=== PATIENT | male | born 1990 | race Caucasian/White ===

== ENCOUNTER 2017-10-30 22:15 | Emergency (ER) | payer MEDICAID, OTHER ==
[~2017-10-30] VITALS: Ht 180.3 cm; Wt 70.3 kg
[2017-10-30] MEDS ORDERED: CONTRAST GIVEN MC PRN (22:45)
[2017-10-30] MEDS ORDERED: HYOSCYAMINE 0.125 MG TAB.RAPDIS PO ONE (23:00)
[2017-10-30] MEDS ORDERED: IV NORMAL SALINE 1,000ML 1,000 ML IV ONE (23:00)
[2017-10-30] MEDS ORDERED: ONDANSETRON PF 4 MG/2 ML VIAL. IV ONE (23:00)
[2017-10-30] MEDS ORDERED: IOHEXOL 300 MG/ML 75 ML VIAL. IV ONE (23:00)
[2017-10-30] MEDS ORDERED: IOHEXOL 240 MG/ML 50ML VIAL. PO ONE (23:00)
[2017-10-30] MEDS ORDERED: FAMOTIDINE 20 MG/2 ML VIAL IVP ONE (23:00)
[2017-10-30 23:13] LABS: BASO % 0 % (0-3); EOS # 0.1 x10^3/uL (0.0-0.7); EOS % 1 % (0-3); HEMATOCRIT 45.8 % (39.0-53.0); HEMOGLOBIN 15.9 g/dL (13.0-17.5); LYMPH # 2.2 x10^3/uL (1.0-4.8); LYMPH % 24 % (24-48); MEAN CORPUSCULAR HEMOGLOBIN 32 pg (25-35); MEAN CORPUSCULAR HGB CONC 35 g/dL (31-37); MEAN CORPUSCULAR VOLUME 92 fL (79-100); MONO % 11 % (0-9); NEUT # 5.9 x10^3uL (1.8-7.7); NEUT % 63 % (31-73); PLATELET COUNT 301 x10^3/uL (140-400); RED BLOOD COUNT 4.98 x10^6/uL (4.30-5.70); RED CELL DISTRIBUTION WIDTH 13.9 % (11.5-14.5); WHITE BLOOD COUNT 9.3 x10^3/uL (4.0-11.0)
[2017-10-30 23:28] LABS: ALBUMIN/GLOBULIN RATIO 1.1 (1.0-1.7); CALCIUM 9.3 mg/dL (8.5-10.1); GFR 90.3; MAGNESIUM 2.1 mg/dL (1.8-2.4); POTASSIUM 3.2 mmol/L (3.5-5.1); TOTAL BILIRUBIN 0.4 mg/dL (0.2-1.0); TOTAL PROTEIN 7.5 g/dL (6.4-8.2)
[2017-10-31] MEDS ORDERED: HYDR25SU18 RC (00:06)
[2017-10-31] MEDS ORDERED: HYOS0.1265 SL (00:06)
--- NOTE | 2017-10-31 00:06 | PHYS DOC ---
Past History Additional Past Medical Histor: Lactose intolerance Past Surgical History: No Surgical History Alcohol Use: None Drug Use: Marijuana Social History Narrative: marijuana 2 days ago Adult General Chief Complaint Chief Complaint: BLOODY STOOL HPI HPI 27-year-old male presents with report of 5 day history of bloody diarrhea. Patient reports noted bright red blood upon wiping. Reports family members recently had nausea vomiting and diarrhea. Reports the nausea and vomiting have improved but now has blood in his diarrhea. Patient reports some increased abdominal pain primarily around his umbilicus. Denies fever or chills. Denies travel outside denies states. Patient does report history of lactose intolerance. Reports has been drinking some coffee with cream but has done this before without symptoms he is experiencing now. Review of Systems Review of Systems Constitutional: Denies fever or chills, reports generalized malaise Eyes: Denies change in visual acuity, redness, or eye pain [] HENT: Denies nasal congestion or sore throat [] Respiratory: Denies cough or shortness of breath [] Cardiovascular: Denies chest pain or palpitations GI: Reports abdominal pain, bloody stools, and diarrhea [] : Denies dysuria or hematuria [] Musculoskeletal: Denies back pain or joint pain [] Integument: Denies rash or skin lesions [] Neurologic: Denies headache, focal weakness or sensory changes [] Complete systems were reviewed and found to be within normal limits, except as documented in this note. Current Medications Current Medications Current Medications Medications (Trade) Dose Ordered Sig/Ayaan Start Time Stop Time Status Last Admin Dose Admin Famotidine (Pepcid Vial) 20 mg 1X ONCE 10/30/17 23:00 10/30/17 23:01 DC 10/30/17 22:54 20 MG Hyoscyamine (Anaspaz) 0.125 mg 1X ONCE 10/30/17 23:00 10/30/17 23:01 DC 10/30/17 22:54 0.125 MG Info (Do NOT chart on this entry -- for MONITORING) 1 each PRN DAILY PRN 10/30/17 22:45 11/01/17 22:44 Iohexol (Omnipaque 240 Mg/ml) 50 ml 1X ONCE 10/30/17 23:00 10/30/17 23:01 DC Iohexol (Omnipaque 300 Mg/ml) 75 ml 1X ONCE 10/30/17 23:00 10/30/17 23:01 DC Ondansetron HCl (Zofran) 4 mg 1X ONCE 10/30/17 23:00 10/30/17 23:01 DC 10/30/17 22:54 4 MG Sodium Chloride 1,000 ml @ 1,000 mls/hr 1X ONCE 10/30/17 23:00 10/30/17 23:59 10/30/17 22:55 1,000 MLS/HR Allergies Allergies Allergies Coded Allergies Type Severity Reaction Last Updated Verified No Known Drug Allergies 10/30/17 No Physical Exam Physical Exam Constitutional: Well developed, well nourished, no acute distress, non-toxic appearance. HENT: Normocephalic, atraumatic, oropharynx moist Eyes: EOMI, conjunctiva normal Neck: Normal range of motion, no tenderness, supple Cardiovascular: Heart rate regular rhythm, no murmur Lungs & Thorax: Bilateral breath sounds clear to auscultation Abdomen: soft, lower quadrant mild tenderness Rectal: Chaparone- Jr RN, small fissure noted at 9 o'clock position, no appreciable external or internal hemorrhoid noted Skin: Warm, dry, no erythema, no rash. Back: No tenderness, no CVA tenderness. Neurologic: Alert and oriented X 3, normal motor function, normal sensory function Psychologic: Affect normal, judgement normal, mood normal. Current Patient Data Vital Signs Vital Signs Date Time Temp Pulse Resp B/P (MAP) Pulse Ox O2 Delivery O2 Flow Rate FiO2 10/30/17 22:25 98.3 85 20 99 Room Air Lab Results Laboratory Tests Test 10/30/17 22:41 White Blood Count 9.3 x10^3/uL (4.0-11.0) Red Blood Count 4.98 x10^6/uL (4.30-5.70) Hemoglobin 15.9 g/dL (13.0-17.5) Hematocrit 45.8 % (39.0-53.0) Mean Corpuscular Volume 92 fL (79-100) Mean Corpuscular Hemoglobin 32 pg (25-35) Mean Corpuscular Hemoglobin Concent 35 g/dL (31-37) Red Cell Distribution Width 13.9 % (11.5-14.5) Platelet Count 301 x10^3/uL (140-400) Neutrophils (%) (Auto) 63 % (31-73) Lymphocytes (%) (Auto) 24 % (24-48) Monocytes (%) (Auto) 11 % (0-9) H Eosinophils (%) (Auto) 1 % (0-3) Basophils (%) (Auto) 0 % (0-3) Neutrophils # (Auto) 5.9 x10^3uL (1.8-7.7) Lymphocytes # (Auto) 2.2 x10^3/uL (1.0-4.8) Monocytes # (Auto) 1.0 x10^3/uL (0.0-1.1) Eosinophils # (Auto) 0.1 x10^3/uL (0.0-0.7) Basophils # (Auto) 0.0 x10^3/uL (0.0-0.2) Sodium Level 141 mmol/L (136-145) Potassium Level 3.2 mmol/L (3.5-5.1) L Chloride Level 104 mmol/L (98-107) Carbon Dioxide Level 29 mmol/L (21-32) Anion Gap 8 (6-14) Blood Urea Nitrogen 12 mg/dL (8-26) Creatinine 1.0 mg/dL (0.7-1.3) Estimated GFR (Cockcroft-Gault) 90.3 BUN/Creatinine Ratio 12 (6-20) Glucose Level 95 mg/dL (70-99) Calcium Level 9.3 mg/dL (8.5-10.1) Magnesium Level 2.1 mg/dL (1.8-2.4) Total Bilirubin 0.4 mg/dL (0.2-1.0) Aspartate Amino Transferase (AST) 20 U/L (15-37) Alanine Aminotransferase (ALT) 21 U/L (16-63) Alkaline Phosphatase 74 U/L (46-116) Total Protein 7.5 g/dL (6.4-8.2) Albumin 4.0 g/dL (3.4-5.0) Albumin/Globulin Ratio 1.1 (1.0-1.7) Lipase 127 U/L (73-393) EKG EKG [] Radiology/Procedures Radiology/Procedures PROCEDURE: CT ABD PELV W/ORAL&IV CONTRAST EXAM: CT ABDOMEN/PELVIS WITH CONTRAST. HISTORY: Lower abdominal pain, hematochezia. TECHNIQUE: Computed tomography of the abdomen and pelvis was performed after the intravenous administration of Omnipaque 300. COMPARISON: None. FINDINGS: Lung windows through the visualized portions of the bases reveal mild atelectasis. Bone windows reveal no suspicious lesions. The left colon is decompressed but demonstrates mild wall thickening. The right colon is not involved. There is no evidence of appendicitis. There is no small bowel obstruction. The liver, gallbladder, pancreas, adrenal glands, spleen and kidneys are unremarkable. There are no pathologically enlarged lymph nodes. IMPRESSION: 1. Mild left colonic wall thickening may be a normal appearance in the setting of luminal decompression. Correlate clinically for mild left colitis. *One or more of the following individualized dose reduction techniques were utilized for this examination: 1. Automated exposure control. 2. Adjustment of the mA and/or kV according to patient size. 3. Use of iterative reconstruction technique. Electronically signed by: Isela Noonan MD (10/31/2017 1:11 AM) [facility] Course & Med Decision Making Course & Med Decision Making Pertinent Labs and Imaging studies reviewed. (See chart for details) Patient presents with 5 day history of diarrhea with bright red blood. Abdomen non-peritoneal but tender to lower quadrants. Labs obtained and posted to chart. WBC and H&H within normal limits. Hypokalemia addressed. Occult stool positive. CT abdomen/pelvis with findings concerning for colitis. Symptomatic treatment provided. IVF hydration provided. Empiric antibiotics given. Patient stable for discharge with outpatient follow-up with PCP/GI. GI referral provided. Discussed findings and plan with patient and family, who acknowledge understanding and agreement. Dragon Disclaimer Dragon Disclaimer This electronic medical record was generated, in whole or in part, using a voice recognition dictation system. Departure Departure: Impression: Primary Impression: Colitis Additional Impression: Hypokalemia Disposition: HOME, SELF-CARE Condition: STABLE Referrals: PCP,NO (PCP) CARI STILES MD Patient Instructions: Colitis, Hypokalemia Scripts Metronidazole (FLAGYL) 500 Mg Tablet 500 MG PO TID for 7 Days, #21 TAB Prov: XIAO YOU DO 10/31/17 Ciprofloxacin Hcl (CIPRO) 500 Mg Tablet 1 TAB PO BID for 7 Days, #14 TAB Prov: XIAO YOU DO 10/31/17 Hyoscyamine Sulfate (LEVSIN-SL) 0.125 Mg Tab.subl 1 TAB SL PRN Q4HRS PRN for PAIN, #14 TAB 0 Refills Prov: XIAO YOU DO 10/31/17 Problem Qualifiers XIAO YOU DO Oct 31, 2017 00:06
[2017-10-31 00:17] LABS: BILIRUBIN,URINE NEG (NEG); CLARITY,URINE CLEAR; COLOR,URINE YELLOW; GLUCOSE,URINE NEG (NEG); NITRITE,URINE NEG (NEG); RBC,URINE 0 /HPF (0-2); UROBILINOGEN,URINE 0.2 mg/dL (0.2 mg/dL)
[2017-10-31 00:18] LABS: BACTERIA,URINE 0 /HPF (0-FEW); FECAL OB PT POSITIVE (NEG); WBC,URINE RARE /HPF (0-4)
[2017-10-31 00:21] LABS: BARBITURATES NEG (NEG); BENZODIAZEPINES NEG (NEG); CANNABINOIDS POS (NEG); COCAINE NEG (NEG); METHADONE NEG (NEG); OPIATES NEG (NEG); PHENCYCLIDINE NEG (NEG)
[2017-10-31 00:22] LABS: AMPHETAMINE/METHAMPHETAMINE NEG (NEG)
[2017-10-31 01:03] VITALS: BP 108/49
--- NOTE | 2017-10-31 01:14 | RAD ---
EXAM: CT ABDOMEN/PELVIS WITH CONTRAST. HISTORY: Lower abdominal pain, hematochezia. TECHNIQUE: Computed tomography of the abdomen and pelvis was performed after the intravenous administration of Omnipaque 300. COMPARISON: None. FINDINGS: Lung windows through the visualized portions of the bases reveal mild atelectasis. Bone windows reveal no suspicious lesions. The left colon is decompressed but demonstrates mild wall thickening. The right colon is not involved. There is no evidence of appendicitis. There is no small bowel obstruction. The liver, gallbladder, pancreas, adrenal glands, spleen and kidneys are unremarkable. There are no pathologically enlarged lymph nodes. IMPRESSION: 1. Mild left colonic wall thickening may be a normal appearance in the setting of luminal decompression. Correlate clinically for mild left colitis. *One or more of the following individualized dose reduction techniques were utilized for this examination: 1. Automated exposure control. 2. Adjustment of the mA and/or kV according to patient size. 3. Use of iterative reconstruction technique. Electronically signed by: Isela Noonan MD (10/31/2017 1:11 AM) [facility]
[2017-10-31] MEDS ORDERED: METR500T PO (01:22)
[2017-10-31] MEDS ORDERED: CIPR500T94 PO (01:22)
[2017-10-31] MEDS ORDERED: metroNIDAZOLE 500 MG TABLET PO ONE (02:00)
[2017-10-31] MEDS ORDERED: POTASSIUM CHLORIDE 20 MEQ TABLET.ER. PO ONE (02:00)
[2017-10-31] MEDS ORDERED: CIPROFLOXACIN HCL 500 MG TABLET PO ONE (02:00)
== END 2017-10-31 02:16 | disposition home or self-care (01) ==
LOC: ER 22:15
DX: K52.9 Noninfective gastroenteritis and colitis, unspecified (principal); E87.6 Hypokalemia
CPT/HCPCS: 36415; 74177; 80053; 80307; 81001; 82274; 83690; 83735; 85025; 96361; 96374; 96375; 99285; J2405; Q9966; Q9967; S0028; G0479; J7030

== ENCOUNTER 2020-11-20 18:42 | Emergency (ER) | payer SELFPAY ==
[~2020-11-20] VITALS: Ht 180.3 cm; Wt 68.2 kg
[~2020-11-20 18:42] MED LIST: CIPR500T94 PO; HYDR25SU18 RC; HYOS0.1265 SL; METR500T PO
[2020-11-20] MEDS ORDERED: CEPH500T PO (20:11)
--- NOTE | 2020-11-20 20:12 | PHYS DOC ---
Past History Additional Past Medical Histor: Lactose intolerance (SHADIA FAM APRN) Past Surgical History: No Surgical History (SHADIA FAM APRN) Alcohol Use: None Drug Use: Marijuana (SHADIA FAM APRN) General Adult EDM: Chief Complaint: INSECT BITE HPI: HPI: Patient is a 30-year-old male who presents with spider bite to his left leg outer thigh. Patient states that he works at the [employer] and today he was undoing boxes when he noticed a red, painful, swollen bite to the back of his left thigh. Patient denies take anything for discomfort. "I am pretty sure got bit by a spider but I did not see one". Denies fever. Denies drainage from the area. Denies medical history. (SHADIA FAM APRN) Review of Systems: Review of Systems: Constitutional: Denies fever or chills Eyes: Denies change in visual acuity HENT: Denies nasal congestion or sore throat Respiratory: Denies cough or shortness of breath Cardiovascular: Denies chest pain or edema GI: Denies abdominal pain, nausea, vomiting, bloody stools or diarrhea : Denies dysuria Musculoskeletal: Denies back pain or joint pain Integument: Red, swollen, painful bite to left upper thigh Neurologic: Denies headache, focal weakness or sensory changes Endocrine: Denies polyuria or polydipsia Lymphatic: Denies swollen glands Psychiatric: Denies depression or anxiety (SHADIA FAM APRN) Allergies: Allergies: Allergies Coded Allergies Type Severity Reaction Last Updated Verified No Known Drug Allergies 10/30/17 No (SHADIA FAM APRN) Physical Exam: PE: Constitutional: Well developed, well nourished, no acute distress, non-toxic appearance. [] HENT: Normocephalic, atraumatic, bilateral external ears normal, oropharynx moist, no oral exudates, nose normal. [] Eyes: PERRLA, EOMI, conjunctiva normal, no discharge. [] Neck: Normal range of motion, no tenderness, supple, no stridor. [] Cardiovascular:Heart rate regular rhythm, no murmur [] Lungs & Thorax: Bilateral breath sounds clear to auscultation [] Abdomen: Bowel sounds normal, soft, no tenderness, no masses, no pulsatile masses. [] Skin: Warm, red, swollen, painful, bite to the left upper thigh Back: No tenderness, no CVA tenderness. [] Extremities: No tenderness, no cyanosis, no clubbing, ROM intact, no edema. [] Neurologic: Alert and oriented X 3, normal motor function, normal sensory function, no focal deficits noted. [] Psychologic: Affect normal, judgement normal, mood normal. [] (SHADIA FAM APRN) Current Patient Data: Vital Signs: Vital Signs Date Time Temp Pulse Resp B/P (MAP) Pulse Ox O2 Delivery O2 Flow Rate FiO2 11/20/20 19:32 99.9 108 16 139/82 (101) 95 Room Air (SHADIA FAM APRN) EKG: EKG: [] (SHADIA FAM APRN) Radiology/Procedures: Radiology/Procedures: [] (SHADIA FAM APRN) Heart Score: C/O Chest Pain: No Risk Factors: Risk Factors: DM, Current or recent (<one month) smoker, HTN, HLP, family history of CAD, obesity. Risk Scores: Score 0 - 3: 2.5% MACE over next 6 weeks - Discharge Home Score 4 - 6: 20.3% MACE over next 6 weeks - Admit for Clinical Observation Score 7 - 10: 72.7% MACE over next 6 weeks - Early Invasive Strategies (SHADIA FAM APRN) Course & Med Decision Making: Course & Med Decision Making Pertinent Labs and Imaging studies reviewed. (See chart for details) [] 21-year-old male presents with spider bite to his left leg outer thigh. Patient was on doing boxes when he noticed he got bit by something. He noticed a red, painful, swollen bite to the back of his left thigh. Denies taking anything for pain. Patient does report pain at this time. Patient given 600 mg of Motrin and instructed to take that at home for discomfort. 1 dose of Keflex given in the emergency room. Patient sent home with prescription for Keflex. Discussed signs of infection. Patient states that he understands and will r eturn if he has worsening symptoms or concerns. Patient is hemodynamically stable upon disposition and afebrile. (SHADIA FAM APRN) Dragon Disclaimer: Dragon Disclaimer: This electronic medical record was generated, in whole or in part, using a voice recognition dictation system. (SHADIA FAM APRN) Departure Departure: Impression: Primary Impression: Insect bite Qualified Codes: S70.362A - Insect bite (nonvenomous), left thigh, initial encounter; W57.XXXA - Bitten or stung by nonvenomous insect and other nonvenomous arthropods, initial encounter Disposition: HOME / SELF CARE / HOMELESS Condition: STABLE Referrals: PCP,NO (PCP) Patient Instructions: Insect Bite, [id number] Additional Instructions: You were seen in the emergency room for insect bite to your left thigh. You were given 1 dose of antibiotic while in the ER. I am sending you home with a prescription for Keflex. Make sure you take the antibiotic in full and as directed. We discussed signs and symptoms of infection. Please make sure that you return to the ER if you have notes of infection. Ibuprofen and Tylenol at home for discomfort. EMERGENCY DEPARTMENT GENERAL DISCHARGE INSTRUCTIONS Thank you for coming to [facility] (ED) today and trusting us with you care. We trust that you had a positivie experience in our Emergency Department. If you wish to speak to the department management, you may call the director at [phone]. YOUR FOLLOW UP INSTRUCTIONS ARE FOLLOWS: 1. Do you have a private Doctor? If you do not have a private doctor, please ask for a resource list of physicians or clinics that may be able to assist you with follow up care. 2. The Emergency Physician has interpreted your x-rays. The X-Ray specialist will also review them. If there is a change in the findings, you will be notified in 48 hours when at all possible. 3. A lab test or culture has been done, your results will be reviewed and you will be notified if you need a change in treatment. ADDITIONAL INSTRUCTIONS AND INFORMATION: 1. Your care today has been supervised by a physician who is specially trained in emergency care. Many problems require more than one evaluation for a complete diagnosis and treatment. We recommend that you schedule your follow up appointment as recommended to ensure complete treatment of you illness or injury. If you are unable to obtain follow up care and continue to have a problem, or if your condition worsens, we recommend that you return to the ED. 2. We are not able to safely determine your condition over the phone nor are we able to give sound medical advice over the phone. For these safety reasons, if you call for medical advice we will ask you to come to the ED for further evaluation. 3. If you have any questions regarding these discharge instructions please call the ED at [phone]. SAFETY INFORMATION: In the interest of safety, wellness, and injury prevention; we encourage you to wear your sealbelt, if you smoke; quite smoking, and we encourage family to use a pro tective helmet for bicycling and other sporting events that present an increased risk for head injury. IF YOUR SYMPTOMS WORSEN OR NEW SYMPTOMS DEVELOP, OR YOU HAVE CONCERNS ABOUT YOUR CONDITION; OR IF YOUR CONDITION WORSENS WHILE YOU ARE WAITING FOR YOUR FOLLOW UP APPOINTMENT; EITHER CONTACT YOUR PRIMARY CARE DOCTOR, THE PHYSICIAN WHOSE NAME AND NUMBER YOU WERE GIVEN, OR RETURN TO THE ED IMMEDIATELY. Scripts Cephalexin (CEPHALEXIN) 500 Mg Tablet 1 TAB PO BID for insect bite for 7 Days, #13 TAB Prov: SHADIA FAM APRN 11/20/20 Attending Signature Attending Signature I have reviewed the PA/BEER BREWER's note and plan of care. I was available for consultation as needed during the patient's visit in the emergency department. I agree with the clinical impression, plan, and disposition. (XIAO YOU DO) SHADIA FAM APRN Nov 20, 2020 20:12 XIAO YOU DO Nov 20, 2020 23:43
[2020-11-20] MEDS ORDERED: CEPHALEXIN 250 MG CAPSULE PO ONE (20:15)
[2020-11-20 20:19] VITALS: BP 136/84
== END 2020-11-20 20:22 | disposition home or self-care (01) ==
LOC: ER 18:42
DX: S70.362A Insect bite (nonvenomous), left thigh, initial encounter (principal); W57.XXXA Bitten or stung by nonvenomous insect and other nonvenomous arthropods, initial encounter; Y93.89 Activity, other specified; Y92.89 Other specified places as the place of occurrence of the external cause; Y99.8 Other external cause status
CPT/HCPCS: 99283